=== PATIENT | male | born 1955 | race Caucasian/White ===

== ENCOUNTER 2018-08-09 12:21 | Emergency (ER) | payer OTHER, SELFPAY ==
[2018-08-09 12:38] VITALS: BP 221/124; PULSE 100; RESP 18; TEMP 36.3; O2SAT 98
--- NOTE | 2018-08-09 13:19 | ED_ITS ---
HPI - Neck Pain/Injury General Chief Complaint: Neck Pain/Injury Stated Complaint: pinching in neck Time Seen by Provider: 08/09/18 12:59 Source: patient Mode of arrival: ambulatory Limitations: no limitations History of Present Illness HPI Narrative: Patient is a 63-year-old male who has chronic ongoing neck pain he has had multiple fusions. He woke up 5 days ago with increased pain and weakness in his left arm. He denies any further injury. No fever. He has been and excruciating pain since then. He spoke with his surgeon who recommended an MRI they are having difficulty with insurance issues. Patient has new onset weakness of his left arm. Patient is a chronic opiate patient. On pain contract not requesting opiate medication. But wanting something for pain MD complaint: neck pain Onset (ago): day(s) (5) Place: home Radiation: left lateral Severity: severe and constant Severity scale (1-10): >10 Quality: sharp Duration: constant Relieving factors: none Related Data Home Medications Medication Instructions Recorded Confirmed aspirin 81 mg tablet,delayed 81 mg PO DAILY 01/10/18 08/09/18 release lisinopril 30 mg tablet 30 mg PO QPM 01/10/18 08/09/18 omega-3 fatty acids 1,000 mg 1,000 mg PO DAILY 01/10/18 08/09/18 capsule ascorbic acid (vitamin C) [Vitamin 1,000 mg PO DAILY 08/09/18 08/09/18 C] gabapentin 300 mg PO TID 08/09/18 08/09/18 glucosamine-chondroitin 1 tab PO DAILY 08/09/18 08/09/18 efxkiftp-ayq-QR-lycopen-lutein 1 tab PO DAILY 08/09/18 08/09/18 [Centrum Silver] naloxone [Narcan] 1 dose INTRANASAL PRN PRN 08/09/18 08/09/18 oxycodone 5 mg PO TID 08/09/18 08/09/18 tamsulosin 0.4 mg PO QPM 08/09/18 08/09/18 Previous Rx's Medication Instructions Recorded cyclobenzaprine 5 mg PO TID PRN #10 tab 08/09/18 Allergies Allergy/AdvReac Type Severity Reaction Status Date / Time No Known Drug Allergies Allergy Verified 01/10/18 12:08 tree pollen Allergy Mild URI Uncoded 01/10/18 12:08 Review of Systems Review of Systems GENERAL: Denies chills, fatigue, malaise, fever, sweats, travel HEENT: Denies sinus pain, ear pain, sore throat, difficulty swallowing, neck pain RESPIRATORY: Denies dyspnea, cough, wheezing, hemoptysis, sputum. CARDIOVASCULAR: Denies chest pain, palpitations, orthopnea, edema GASTROINTESTINAL: Denies nausea, vomiting, abdominal pain, diarrhea, constipation, melena. : Denies dysuria, frequency, incontinence, hematuria, urinary retention, flank pain. MUSCULOSKELETAL: Neck pain SKIN: No rash, no erythema, no pruritus NEUROLOGIC: + numbness left Denies weakness, dizziness, headache, change in speech, confusion PSYCHIATRIC: No concerning psychosocial issues. 12 point review of systems is negative except for those stated above and HPI [facility] Medical History Chronic pain (Acute) Hypertension (Acute) Social History (Updated 08/09/18 @ 13:18 by Marika Tsang DO) marital status: Smoking Status: Never smoker Social History marital status: Smoking Status: Never smoker Exam Initial Vital Signs Initial Vital Signs: Vital Signs Temperature 97.3 F L 08/09/18 12:38 Pulse Rate 100 H 08/09/18 12:38 Respiratory Rate 18 08/09/18 12:38 Blood Pressure 221/124 H 08/09/18 12:38 Pulse Oximetry 98 08/09/18 12:38 GENERAL: Patient appears in pain uncomfortable HEENT: Head atraumatic,EOMI, pupils reactive, face symmetric, decreased range of motion of the neck rotation and flexion extension CARDIOVASCULAR: Regular rate and rhythm without murmurs, rubs or gallops. RESPIRATORY: Breath sounds equal bilaterally, no wheezes rales or rhonchi. EXTREMITIES: Normal range of motion, no clubbing or edema. Neurovascularly intact NEUROLOGICAL: Alert and oriented x4.Normal gait and speech. Cranial nerves II through XII grossly intact. Director Asset strength is weaker on the left hand. Decreased range of motion of left arm SKIN: Warm, dry, no laceration, no petechiae, no rashes or lesions. Course Orders Ordered: ED Orders 08/09/18 14:30 MR cervical spine wo con Stat Discontinued Medications Cyclobenzaprine HCl (Flexeril) 10 mg PO NOW ONE Stop: 08/09/18 13:08 Last Admin: 08/09/18 13:32 Dose: 10 mg Ketorolac Tromethamine (Toradol) 60 mg IM NOW ONE Stop: 08/09/18 13:08 Last Admin: 08/09/18 13:32 Dose: 60 mg Vital Signs - 8 hr 08/09/18 12:38 08/09/18 15:50 Temperature 97.3 F L Pulse Rate 100 H 86 Respiratory Rate 18 18 Blood Pressure 221/124 H 174/108 H Pulse Oximetry 98 96 MDM - Neck Pain/Injury Imaging Data MRI Neck: Radiologist's impression: PROCEDURE: MR CERVICAL SPINE WO CON INDICATIONS: weakness left arm multiple surgeries TECHNIQUE: Noncontrast sagittal T1 spin echo and T2 fast spin echo, sagittal STIR, foraminal oblique sagittal T2 fast spin echo, and axial gradient echo or T2 fast spin echo through the cervical spine. COMPARISON: None. FINDINGS: Image quality: Excellent. Alignment and Curvature: There is normal bony alignment. Bone Marrow: Marrow demonstrates normal overall signal. Spinal Cord: Visualized spinal cord has normal size and signal. No cerebellar tonsillar herniation. Paraspinous Soft Tissues: No paravertebral masses. Prevertebral soft tissues are normal in thickness. Postoperative changes are seen anteriorly C4-C6. There is also an anteriorly placed fixation device at C6-C7. There is associated susceptibility artifact. C2-C3: The disc height is well-preserved. Loss of disc signal is seen at this level. There is moderate right-sided and mild left-sided facet hypertrophy seen. Moderate bilateral neural foraminal narrowing is seen. Xbio-wm-fcncpqbh central canal narrowing is seen. C3-C4: The disc height is well-preserved. Loss of disc signal is seen at this level. Moderate generalized disc osteophyte complex is seen. Jizl-pd-ipptliug facet hypertrophy is seen. There is moderate to severe bilateral neural foraminal narrowing seen. Moderate central canal narrowing is seen, with mass effect upon the ventral spinal cord. C4-C5: Mild to moderate disc osteophyte complex is seen. Ilap-bj-hdwttaov facet hypertrophy is seen. There is moderate bilateral neural foraminal narrowing seen, left worse than right. Moderate central canal narrowing is seen, with mild mass effect upon the ventral spinal cord. C5-C6: Moderate generalized disc osteophyte complex is seen. Mild facet joint hypertrophy is seen. There is moderate right-sided and moderate to severe left- sided neural foraminal narrowing seen. Moderate central canal narrowing is seen. There is associated mass effect upon the ventral spinal cord. C6-C7: Moderate generalized disc osteophyte complex is seen. There is mild right-sided and moderate left-sided facet hypertrophy seen. There is at least moderate right-sided and moderate to severe left-sided neural foraminal narrowing seen. Mild central canal narrowing is seen. C7-T1: The disc height is well-preserved. Loss of disc signal is seen at this level. Mild to moderate disc osteophyte complex is seen. There is a superimposed disc osteophyte protrusion seen involving the right lateral recess/foraminal region, as on series 5 image 41. Moderate right-sided and at least moderate left-sided neural foraminal narrowing is seen. Moderate central canal narrowing is seen. IMPRESSION: Extensive postoperative changes are seen anteriorly. Multiple levels of degenerative change are seen. At C7-T1, there is a left lateral recess/foraminal disc protrusion seen. Dictated by: Jeevan Albarran M.D. on 08/09/2018 at 14:21 MDM Narrative Medical decision making narrative: Patient's pain is overall improved. His blood pressure has decreased significantly. He admits to not taking his blood pressure medication this morning I strongly recommended he take it. He has a surgeon who he plans on seeing her at least calling tomorrow. He is given a copy of his MRI today. At this time I think this is acute on chronic. Discharge Plan Departure Patient Disposition: Home Clinical Impression: Cervical disc disorder Discharge Date/Time: 08/09/18 15:51 Interventions: ED Discharge Assessment Last Done: 08/09/18 15:50 Instructions: Chronic Neck Pain Activity Restrictions/Additional Instructions: *You have been diagnosed with chronic neck pain site of disc protrusion is C7-T1 *What to do: Increase activity as tolerated. Recommend seeing her surgeon as soon as possible *Continue to take medications as directed SENT TO [facility] [place] -Flexeril 5-10 mg every 8 hours if needed for muscle spasm. This can cause dizziness and lightheadedness do not drive while taking *Follow up with your primary care provider in 2-3 days *Return to ER if you should have increasing weakness, fever or any new, wo rsening or concerning symptoms Prescriptions: New cyclobenzaprine 5 mg tablet 5 mg PO TID PRN (Reason: muscle spasm) Qty: 10 RF: 0 No Action omega-3 fatty acids [Fish Oil Concentrate] 1,000 mg capsule 1,000 mg PO DAILY RF: 0 aspirin [Adult Low Dose Aspirin] 81 mg tablet,delayed release (DR/EC) 81 mg PO DAILY RF: 0 lisinopril 30 mg tablet 30 mg PO QPM RF: 0 gabapentin 300 mg Capsule 300 mg PO TID RF: 0 Narcan 4 mg/actuation spray,non-aerosol 1 dose Intranasal PRN PRN (Reason: Opioid Reversal) RF: 0 tamsulosin 0.4 mg capsule 0.4 mg PO QPM RF: 0 oxycodone 5 mg Tablet 5 mg PO TID RF: 0 ascorbic acid (vitamin C) [Vitamin C] 1,000 mg Tablet 1,000 mg PO DAILY RF: 0 Centrum Silver 0.4-300-250 mg-mcg-mcg Tablet 1 tab PO DAILY RF: 0 glucosamine-chondroitin 1 tab PO DAILY RF: 0
[2018-08-09] MEDS: KETOROLAC 60 MG/2 ML VIAL IM (13:32)
[2018-08-09] MEDS: CYCLOBENZAPRINE 10 MG TABLET PO (13:32)
--- NOTE | 2018-08-09 14:30 | DI.MRI.S_ITS ---
PROCEDURE: MR CERVICAL SPINE WO CON INDICATIONS: weakness left arm multiple surgeries TECHNIQUE: Noncontrast sagittal T1 spin echo and T2 fast spin echo, sagittal STIR, foraminal oblique sagittal T2 fast spin echo, and axial gradient echo or T2 fast spin echo through the cervical spine. COMPARISON: None. FINDINGS: Image quality: Excellent. Alignment and Curvature: There is normal bony alignment. Bone Marrow: Marrow demonstrates normal overall signal. Spinal Cord: Visualized spinal cord has normal size and signal. No cerebellar tonsillar herniation. Paraspinous Soft Tissues: No paravertebral masses. Prevertebral soft tissues are normal in thickness. Postoperative changes are seen anteriorly C4-C6. There is also an anteriorly placed fixation device at C6-C7. There is associated susceptibility artifact. C2-C3: The disc height is well-preserved. Loss of disc signal is seen at this level. There is moderate right-sided and mild left-sided facet hypertrophy seen. Moderate bilateral neural foraminal narrowing is seen. Ceuw-pu-zuaxjykr central canal narrowing is seen. C3-C4: The disc height is well-preserved. Loss of disc signal is seen at this level. Moderate generalized disc osteophyte complex is seen. Tfuv-en-bgbelvwh facet hypertrophy is seen. There is moderate to severe bilateral neural foraminal narrowing seen. Moderate central canal narrowing is seen, with mass effect upon the ventral spinal cord. C4-C5: Mild to moderate disc osteophyte complex is seen. Otsf-ot-wnrizdcc facet hypertrophy is seen. There is moderate bilateral neural foraminal narrowing seen, left worse than right. Moderate central canal narrowing is seen, with mild mass effect upon the ventral spinal cord. C5-C6: Moderate generalized disc osteophyte complex is seen. Mild facet joint hypertrophy is seen. There is moderate right-sided and moderate to severe left-sided neural foraminal narrowing seen. Moderate central canal narrowing is seen. There is associated mass effect upon the ventral spinal cord. C6-C7: Moderate generalized disc osteophyte complex is seen. There is mild right-sided and moderate left-sided facet hypertrophy seen. There is at least moderate right-sided and moderate to severe left-sided neural foraminal narrowing seen. Mild central canal narrowing is seen. C7-T1: The disc height is well-preserved. Loss of disc signal is seen at this level. Mild to moderate disc osteophyte complex is seen. There is a superimposed disc osteophyte protrusion seen involving the right lateral recess/foraminal region, as on series 5 image 41. Moderate right-sided and at least moderate left-sided neural foraminal narrowing is seen. Moderate central canal narrowing is seen. IMPRESSION: Extensive postoperative changes are seen anteriorly. Multiple levels of degenerative change are seen. At C7-T1, there is a left lateral recess/foraminal disc protrusion seen. Dictated by: Jeevan Albarran M.D. on 08/09/2018 at 14:21 Approved by: Jeevan Albarran M.D. on 08/09/2018 at 14:26
[2018-08-09 15:50] VITALS: BP 174/108; PULSE 86; RESP 18; O2SAT 96
== END 2018-08-09 15:51 | disposition home or self-care (01) ==
PROVIDERS: Emergency Provider Emergency Medicine
DX: M50.90 Cervical disc disorder, unspecified, unspecified cervical region (principal); M79.602 Pain in left arm
CPT/HCPCS: 72141; 96372; 99282; 99284; J1885

== ENCOUNTER 2019-05-23 11:54 | Day surgery (SDC) | payer MEDICARE, OTHER, SELFPAY ==
--- NOTE | 2019-05-23 | PATH_ITS ---
[facility] Accession Number: [id number] . 01 Material submitted: . colon - POLYP AT 40 . 02 Diagnosis: Colon at 40 cm, Polyp: Tubular adenoma. MRV 05/24/2019 1013 Local . 02 Electronically signed: . Ladarius Rodriguez MD, PhD, Pathologist NPI- [id number] . 01 Gross description: . POLYP AT 40: Received in formalin is 1 fragment(s) of jacobs, soft tissue measuring 0.5 x 0.5 x 0.5 cm submitted entirely in 1 cassette(s) /[facility] 05/23/2019 2043 Local . 02 Pathologist provided ICD-10: D12.6 . 02 CPT . [id number] Performed at: 01 [facility] [address] [place] [address], [place], [place] [id number] MD Terrence Fagan MD Phone: [phone] Performed at: 02 [facility] [place] [address] [place], [place] [id number] MD Summer Nieto MD Phone: [phone]
[2019-05-23] MEDS: SODIUM CHLORIDE 0.9% 1,000 ML 200 ML IV (12:17)
[2019-05-23 12:29] VITALS: BP 138/74; PULSE 83; RESP 20; TEMP 36.7; O2SAT 99; BMI 34.0
--- NOTE | 2019-05-23 13:01 | P.HP_ITS ---
History of Present Illness History of Present Illness Date Patient Seen: 05/23/19 Time Patient Seen: 13:02 Chief complaint: [id number] Narrative: Patient presents for colorectal screening. They have never had any previous examination for such. No personal or family history of colon cancer. On further history denies any recent gastrointestinal symptoms. No nausea, vomiting, abdominal pain, loss of appetite, unexplained weight loss, change in bowel habits, diarrhea, constipation, melena, hematochezia, or bright red blood per rectum. Patient History Medical History Cervical spine disease (Chronic ~2011) Chronic back pain (Chronic) Chronic pain (Acute) Hearing loss (Chronic) Hypertension (Acute) Surgical History Anesthesia (Resolved) History of hernia surgery (Resolved) History of kidney stones (Resolved) History of neck surgery (Resolved) Family & Social History Family History Father History of heart disease Hypertension Mother Stroke Sister History of heart disease Sister Diabetes mellitus Social History: household members spouse Tobacco & Substance use: Smoking Status Never smoker alcohol intake never alcohol intake frequency 0-2 drinks per day Substance Use Type marijuana Meds Home Medications and Allergies Home Medications Medication Instructions Recorded Confirmed Type aspirin 81 mg tablet,delayed 81 mg PO DAILY 01/10/18 05/23/19 History release lisinopril 30 mg tablet 30 mg PO QPM 01/10/18 05/23/19 History omega-3 fatty acids 1,000 mg 1,000 mg PO DAILY 01/10/18 05/23/19 History capsule ascorbic acid (vitamin C) [Vitamin 1,000 mg PO DAILY 08/09/18 05/23/19 History C] gabapentin 300 mg PO TID 08/09/18 05/23/19 History glucosamine-chondroitin 1 tab PO DAILY 08/09/18 05/23/19 History flwkmwzf-oip-EX-lycopen-lutein 1 tab PO DAILY 08/09/18 05/23/19 History [Centrum Silver] naloxone [Narcan] 1 dose INTRANASAL PRN PRN 08/09/18 05/23/19 History oxycodone 5 mg PO TID 08/09/18 05/23/19 History tamsulosin 0.4 mg PO QPM 08/09/18 05/23/19 History atorvastatin 20 mg tablet 20 mg PO DAILY #90 tab 08/24/18 05/23/19 Rx Allergies Allergy/AdvReac Type Severity Reaction Status Date / Time No Known Drug Allergies Allergy Verified 05/23/19 12:18 tree pollen Allergy Mild URI Uncoded 05/23/19 12:18 Review of Systems Review of Systems Narrative: A 10 point review of systems is negative except as noted in the HPI Exam Vital Signs (past 8 hours): - 05/23/19 12:29 Temperature 98.1 F Pulse Rate 83 Respiratory Rate 20 Blood Pressure 138/74 Pulse Oximetry 99 Oxygen Delivery Method Room Air Narrative Exam Narrative: General-no acute distress, well nourished HEENT-moist mucous membranes, no scleral icterus Neck-supple, no lymphadenopathy Chest- non labored respirations, clear to auscultation bilaterally Cardiac-regular rate no peripheral edema Abdomen-soft, nontender, non distended Extremities-warm, well perfused Neurological-alert and oriented, no focal deficits Assessment & Plan Assessment and plan (1) Screening for colon cancer: Current visit: Yes Status: Acute Assessment & Plan narrative: The patient requires colorectal screening and colonoscopy is recommended. Technical details were discussed. Risks, benefits, alternatives explained. Risks including but not limited to myocardial infarction, aspiration, bleeding, pain, missed lesion, incomplete examination, n eed for further radiographic studies, colonic perforation, and need for major abdominal surgery were discussed. All questions were answered to their satisfaction, and they are in agreement with this plan.
--- NOTE | 2019-05-23 13:11 | PM.OP.ENDO ---
Operative Date/Time/Diagnoses Date of procedure: 05/23/19 Time of procedure: 13:11 Pre-op diagnosis: screening colonoscopy Post-op diagnosis: same Procedure & Clinicians Study performed: colonoscopy Same procedure as scheduled: Yes Indications: screening, no prior colonoscopy Surgeon: Celio Spence Procedure Notes SCOAP/Timeout: performed Procedure in detail: Patient placed in left lateral decubitus position. Time out was performed. Procedural sedation was administered with Versed and Fentanyl. A rectal exam demonstrated no external hemorrhoids no internal masses. Colonoscopy scope was placed into the rectum and advanced through the colon to the cecum. The ileocecal valve was identified. The scope was then slowly withdrawn examining colon thoroughly in all directions. The colonoscopy was notable for the following 1. Adenomatous appearing polyp less than 1 cm removed with hot snare 40 cm to the anal verge. Hemostasis observed 2. Sigmoid diverticulosis 3. Grade 1 internal hemorrhoids Scope withdrawal time: 7 Sedation minutes: 33 Findings: diverticulosis, internal hemorrhoids and polyp Specimen(s): other (Polyp) Impression: Polyp, diverticulosis Post-procedure Recommendations: Colonscopy in 5 years Disposition: same day surgery
[2019-05-23] MEDS: MIDAZOLAM 5 MG/5 ML VIAL IV (13:39)
[2019-05-23] MEDS: fentaNYL 250 MCG/5 ML INJ IV (13:39)
[2019-05-23 13:45] VITALS: BP 135/61; PULSE 82; RESP 12; TEMP 36.6; O2SAT 97
[2019-05-23 13:50] VITALS: BP 142/64; PULSE 82; RESP 15; O2SAT 96
[2019-05-23 13:59] VITALS: BP 148/72; PULSE 81; RESP 14; O2SAT 97
[2019-05-23 14:00] VITALS: BP 130/58; PULSE 77; RESP 13; O2SAT 97
[2019-05-23 14:13] VITALS: BP 131/57; PULSE 79; RESP 16; O2SAT 99
== END 2019-05-23 15:00 | disposition home or self-care (01) ==
PROVIDERS: PCP Nurse Practitioner Family; Referring Provider Surgery; Visit Provider Surgery
PROC: 0DJD8ZZ Inspection of Lower Intestinal Tract, Via Natural or Artificial Opening Endoscopic (ICD-10-PCS; CPT 45378; principal; 2019-05-23 13:00)
DX: Z12.11 Encounter for screening for malignant neoplasm of colon (principal); K57.30 Diverticulosis of large intestine without perforation or abscess without bleeding; K64.0 First degree hemorrhoids; D12.6 Benign neoplasm of colon, unspecified
CPT/HCPCS: 45385; 99152; 99153; J2250; J3010

== ENCOUNTER → 2020-05-27 16:53 | Outpatient (CLI) | payer MEDICARE, OTHER, SELFPAY ==
[2020-05-27] MEDS: COVID-19 VACC, Ad26(JANSSEN)/PF 0.5 ML IM (16:57)
== END ==
PROVIDERS: PCP Nurse Practitioner Family; Visit Provider Internal Medicine
DX: Z23 Encounter for immunization (principal)
CPT/HCPCS: 0031A; 91303